=== PATIENT | female | born 1990 | race Caucasian/White ===

== ENCOUNTER 2017-05-10 21:52 | Emergency (ER) | payer OTHER ==
[2017-05-10 22:14] VITALS: O2SAT 98
[2017-05-10] MEDS ORDERED: BACIGUENT PACKET TP ONE (22:19)
[2017-05-10] MEDS ORDERED: BACIGUENT PACKET ONE ×2 (22:21→22:30)
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
[2017-05-10] MEDS ORDERED: Tylenol #3 Tablet PO ONE ×2 (22:27)
[2017-05-10] MEDS ORDERED: Tylenol #3 Tablet ONE (22:31)
[2017-05-10 22:49] VITALS: BP 111/71; PULSE 88
== END 2017-05-10 22:53 | disposition home or self-care (01) ==
LOC: ED 21:52
DX: T23.261A Burn of second degree of back of right hand, initial encounter (principal); W38.XXXA Explosion and rupture of other specified pressurized devices, initial encounter; Z33.1 Pregnant state, incidental
CPT/HCPCS: 99283; A9270-GY

== ENCOUNTER 2017-05-22 10:38 | Emergency (ER) | payer OTHER ==
--- NOTE | 2017-05-22 11:15 | ERPHSYRPT ---
- History of Present Illness Time Seen by Provider: 05/22/17 10:42 Source: patient Exam Limitations: no limitations Physician History: jillian presents 19+ weeks ; LMP December 30, 2016;KELECHI 2-16-18; no pain; no bleeding; good movement; had intercourse last pm wit problems;this am felt watery d/c when got up and concerned water had broken; no other issues or complaints; no symptoms Timing/Duration: today, hour(s) (3), sudden Activites at Onset: physical activity (walking) Quality: other (none) Onset Location: vaginal Pain Radiation: none Severity of Pain-Max: none Severity of Pain-Current: none Prior abdominal problems: none Sexual intercourse history: single partner, other (last night) Modifying Factors: Improves With: movement, walking Associated Symptoms: vaginal fluid leakage (possible and concerned) Allergies/Adverse Reactions: penicillin G Allergy (Severe, Verified 05/22/17 11:16) Shortness of Breath Home Medications: Vits W-Ca,Fe,FA(<1Mg) [] 1 each PO DAILY 05/22/17 [History] Hx Tetanus, Diphtheria Vaccination/Date Given: Yes (2 years ago) Hx Influenza Vaccination/Date Given: No Hx Pneumococcal Vaccination/Date Given: No - Review of Systems Constitutional: No Symptoms Eyes: No Symptoms Ears, Nose, & Throat: No Symptoms Respiratory: No Cough, No Dyspnea, No Wheezing Cardiac: No Chest Pain, No Edema, No Palpitations, No Syncope Abdominal/Gastrointestinal: No Abdominal Pain, No Nausea, No Vomiting, No Diarrhea Genitourinary Symptoms: , Vaginal Discharge (possible leakage amniotic fluid), No Dysuria, No Hematuria, No Flank Pain, No Vaginal Bleeding Musculoskeletal: No Symptoms Skin: No Symptoms Neurological: No Symptoms Psychological: No Symptoms Endocrine: No Symptoms Hematologic/Lymphatic: No Symptoms Immunological/Allergic: No Symptoms - Past Medical History Pertinent Past Medical History: No Neurological History: No Pertinent History ENT History: No Pertinent History Cardiac History: No Pertinent History Respiratory History: Asthma Endocrine Medical History: Hypoglycemia Musculoskeletal History: No Pertinent History GI Medical History: Gallbladder Disease History: No Pertinent History Psycho-Social History: Depression Female Reproductive Disorders: No Pertinent History Other Medical History: Hypoglycemic. - Past Surgical History Past Surgical History: Yes Neuro Surgical History: No Pertinent History Cardiac: No Pertinent History Respiratory: No Pertinent History Gastrointestinal: Cholecystectomy Genitourinary: No Pertinent History Musculoskeletal: No Pertinent History Female Surgical History: No Pertinent History Other Surgical History: tonsils - Social History Smoking Status: Former smoker How long have you smoked: 5 Exposure to second hand smoke: No Alcohol Use: None Drug Use: none Patient Lives Alone: Yes (fiance and children) Significant Family History: no pertinent family hx - Female History Hx Last Menstrual Period: dec 30 2016 Hx Now: Yes (19 + weeks) Expected Date of Delivery: 10/12/17 () Gestational Age: 19+ weeks - Nursing Vital Signs Nursing Vital Signs: Initial Vital Signs Pulse Rate 85 05/22/17 10:58 Respiratory Rate 18 05/22/17 10:58 Blood Pressure 140/84 05/22/17 10:58 O2 Sat by Pulse Oximetry 97 05/22/17 10:58 Pain Scale Pain Intensity 0 - Physical Exam General Appearance: no apparent distress, alert, other (19+ weeks ) Eye Exam: PERRL/EOMI, eyes nml inspection, No photophobia Ears, Nose, Throat Exam: normal ENT inspection, TMs normal, pharynx normal, moist mucous membranes Neck Exam: normal inspection, non-tender, supple, full range of motion, No meningismus, No JVD, No thyromegaly Respiratory Exam: normal breath sounds, lungs clear, airway intact, No chest tenderness, No respiratory distress, No rhonchi, No wheezing Cardiovascular Exam: regular rate/rhythm, normal heart sounds, normal peripheral pulses, capillary refill <2 sec, No murmur, No edema Gastrointestinal/Abdomen Exam: soft, normal bowel sounds, distention () , mass (19+ week ), organomegaly (uterus to umbilicus), other (Good FHT at 146), No tenderness, No guarding, No rebound, No hepatomegaly, No splenomegaly Pelvic Exam: normal external exam, vaginal discharge (clear), other (cervix closed; uterus enlarged to umbilicus consistant with dates), No adnexal tenderness, No adnexal mass, No cervical motion tenderness, No vaginal bleeding , No uterine tenderness Rectal Exam: deferred Back Exam: normal inspection, normal range of motion, No CVA tenderness, No rash Extremity Exam: normal inspection, normal range of motion, pelvis stable, No calf tenderness, No jhonathan's sign, No pedal edema, No swelling Neurologic Exam: alert, oriented x 3, cooperative, dental specialist II-XII nml as tested, normal mood/affect, nml cerebellar function, nml station & gait, sensation nml, other (reflexes wnl) Skin Exam: normal color, warm, dry, No rash, No petechiae Lymphatic Exam: No adenopathy - Course Nursing assessment & vital signs reviewed: Yes Ordered Tests: Active Orders 24 hr Category Date Time Status Cath for Specimen-Straight STAT Care 05/22/17 11:09 Active Heart Tones-ED STAT Care 05/22/17 11:19 Active Pelvic Exam Assist STAT Care 05/22/17 11:08 Active Re-Check Vital Signs STAT Care 05/22/17 11:08 Active CULTURE,URINE Stat Lab 05/22/17 11:15 Received UA W/ MICROSCOPIC Stat Lab 05/22/17 11:15 Completed Wet Prep Stat Lab 05/22/17 11:15 Completed Lab/Rad Data: Laboratory Results 05/22/17 Range/Units 11:15 Ur Collection Type CATH Urine Color YELLOW (YELLOW) Urine Appearance CLEAR (CLEAR) Urine pH 5.0 (5-6) Ur Specific [place] 1.015 (1.005-1.025) Urine Protein 300 (Negative) Urine Ketones NEGATIVE (NEGATIVE) Urine Blood 250 (0-5) Gil/ul Urine Nitrite NEGATIVE (NEGATIVE) Urine Bilirubin NEGATIVE (NEGATIVE) Urine Urobilinogen NORMAL (0-1) mg/dL Ur Leukocyte Esterase TRACE (NEGATIVE) Urine Microscopic RBC 10-15 (0-2) /HPF Urine Microscopic WBC 10-15 (0-5) /HPF Ur Epithelial Cells FEW (FEW) /HPF Urine Bacteria MODERATE (NEGATIVE) /HPF Urine Mucus SLIGHT (NEGATIVE) /HPF Urine Glucose NEGATIVE (NEGATIVE) mg/dL WBC (Wet Prep) Moderate RBC (Wet Prep) Few Epi Cells (Wet Prep) Few Bacteria (Wet Prep) Many Clue Cells (Wet Prep) Few Trichomonas (Wet Prep) None Seen Budding Yeast (Wet Prp) None Seen Specimen Received 05-22 0600 reviewed - Progress Progress: re-examined Air Movement: good Progress Note: 05/22/17 11:59 checked fluid with nitrazene paper and not amniotic fluid; u/a shows infection on cath specimen; wet prep ok; at bedside; instructions given; recheck no change Blood Culture(s) Obtained: No Antibiotics given: No Counseled pt/family regarding: lab results, diagnosis, need for follow-up - Departure Time of Disposition: 12:00 Departure Disposition: Home Clinical Impression: UTI (urinary tract infection), Condition: Stable Critical Care Time: No Referrals: HEBER BARBOZA MD [Primary Care Provider] - Instructions: -- Discomforts and Remedies, Urinary Tract Infection ( UTI) Additional Instructions: follow up OB doctor recheck Follow-up with family doctor as directed. Call for appointment. Return if any problems. If you smoke please stop. Call or follow up with your family doctor for assistance if you need it to stop. Please wear your seatbelt when driving. Have a nice day. Thank you for allowing us to participate in your care today. :o) Dr Art Jimenes Prescriptions: Cephalexin Mh 250 mg [Keflex 250 mg] 250 mg PO TID #30 capsule
[2017-05-22 11:16] VITALS: O2SAT 97
[2017-05-22 11:30] LABS: Bacteria Many; Clue Cells Few; Trichomonas None Seen
[2017-05-22 11:31] LABS: Bilirubin NEGATIVE (NEGATIVE); Blood 250 Ery/ul (0-5); COMPLETE URINE MICROSCOPIC? YES; Collection Type CATH; Glucose NEGATIVE (NEGATIVE); Leukocyte Esterase TRACE (NEGATIVE); Yeast None Seen
[2017-05-22 11:36] LABS: ADD URINE CULTURE? YES (NO); Bacteria MODERATE /HPF (NEGATIVE); Epithelial Cells FEW /HPF (FEW); Mucus SLIGHT /HPF (NEGATIVE)
[2017-05-22 12:06] VITALS: BP 120/72; PULSE 64
[2017-05-22 13:27] LABS: CHLAMYDIA URINE POSITIVE; GC URINE NEGATIVE
== END 2017-05-22 12:12 | disposition home or self-care (01) ==
LOC: ED 10:38
DX: O23.42 Unspecified infection of urinary tract in pregnancy, second trimester (principal); Z3A.19 19 weeks gestation of pregnancy
CPT/HCPCS: 81000; 87086; 87210; 87491; 87591; 99283; P9612

== ENCOUNTER 2017-06-19 07:22 | Inpatient (IN) | payer OTHER ==
[2017-06-19] MEDS ORDERED: PITOCIN 30 UNITS/ LR 500 ML 500 ML IV ONE (07:37)
[2017-06-19] MEDS ORDERED: Lactated Ringers 1,000 ML IV ONE (07:37)
[2017-06-19] MEDS ORDERED: TYLENOL EXTRA STRENGTH 500 MG PO PRN (07:39)
[2017-06-19] MEDS ORDERED: Dermoplast Spray TP PRN (07:39)
[2017-06-19] MEDS ORDERED: Ambien 10 MG PO PRN (07:39)
[2017-06-19] MEDS ORDERED: Mylicon 80MG PO PRN (07:39)
[2017-06-19] MEDS ORDERED: NORCO 5/325 MG PO PRN (07:39)
[2017-06-19] MEDS ORDERED: TUCKS TP PRN (07:39)
[2017-06-19] MEDS ORDERED: PITOCIN 30 UNITS/ LR 500 ML 500 ML IV SCH (08:00)
[2017-06-19 08:04] LABS: BASOPHIL % 0.1 % (0.0-0.4); Eosinophil % 0.9 % (0.00-5.0); Granulocytes % 78.7 % (36.0-66.0); Lymphocytes % 13.6 % (24.0-44.0); Mean Cell Volume 87.7 fl (78-100); Mean Corpuscular Hemoglobin 29.6 pg (26-32); Monocytes % 6.7 % (0.0-12.0); Platelet Count 257 K/mm3 (150-450); Red Blood Count 3.41 M/mm3 (4.1-5.4); Red Cell Distribution Width 12.8 % (11.5-14.0); White Blood Count 23.2 K/mm3 (4.0-10.5)
[2017-06-19 08:20] LABS: Eosinophil 1 % (0.00-3.0); Platelet Estimate NORMAL (NORMAL); Total Cells Counted 100
[2017-06-19] MEDS ORDERED: MOTRIN 400 MG ONE ×2 (08:22→15:34)
[2017-06-19] MEDS: MOTRIN 400 MG PO PRN ×2 (08:25→15:38)
[2017-06-19] MEDS ORDERED: Colace 100 MG PO SCH (10:00)
[2017-06-19] MEDS ORDERED: FERREX 150 PO SCH (10:00)
[2017-06-19 10:34] VITALS: O2SAT 99
[2017-06-19] MEDS: Lactated Ringers 1,000 ML IV SCH ×2 (10:55→17:55)
[2017-06-19 13:28] VITALS: BP 103/59
[2017-06-19] MEDS ORDERED: Colace 100 MG ONE (15:34)
[2017-06-19] MEDS ORDERED: FERREX 150 ONE (15:34)
[2017-06-19 18:33] LABS: BASOPHIL % 0.2 % (0.0-0.4); Eosinophil % 0.5 % (0.00-5.0); Granulocytes % 75.4 % (36.0-66.0); Lymphocytes % 16.7 % (24.0-44.0); Mean Cell Volume 88.2 fl (78-100); Mean Platelet Volume 9.7 fl (6-9.5); Monocytes % 7.2 % (0.0-12.0); Platelet Count 238 K/mm3 (150-450); Red Blood Count 3.05 M/mm3 (4.1-5.4); Red Cell Distribution Width 12.9 % (11.5-14.0); White Blood Count 18.3 K/mm3 (4.0-10.5)
[2017-06-19 18:39] LABS: Mean Corpuscular Hemoglobin 29.1 pg (26-32)
[2017-06-19 20:37] VITALS: PULSE 85
--- NOTE | 2017-06-20 11:12 | DS ---
DISCHARGE DIAGNOSIS: STILLBORN DELIVERY IN 23RD WEEK OF . HOSPITAL COURSE: The patient is a 26 year-old white female who has been taken care of by Dr. Laurence Fritz at the [facility] in [place]. She had been seen there and diagnosed with oligohydramnios with her baby and then she had been seen at [facility]. Apparently the mom reports that the baby had been active and moving up until the time that she began having bleeding and what she thought was ruptured membranes that had been leaking. She presented herself to our facility. By the time I saw her the baby had already delivered stillborn. We were able to deliver the placenta in its entirety without incident. The patient was monitored for the possibility of chorioamnionitis during her stay. She was afebrile with stable vital signs. She was noted to be O-positive on her blood type. Laboratory studies showed an initial white blood cell count at 22,200 with no bands and 80 polys this was at 0800 hours and by 1800 hours in the afternoon her white blood cell count was 18,300. Her PLT count was 238,000. Her hemoglobin was 8.9 down from 10.1. The patient's urine drug screen was entirely negative. She had a negative antibody screen. We did request data from [facility]. They did give us an ultrasound of 05/24/2017 showing oligohydramnios with BRYAN 1.6. At that time it showed gestational age of 20 weeks and 0 days with an EDC of 10/16/2017. The patient after delivery was doing quite well. She had two previous deliveries of healthy babies and she was in our labor and delivery unit with mommas delivering babies and she desired returning home as she did not wish to stay in our facility at this time. She was stable and there appeared to be no reason that she could not go home at this time. She was allowed to be discharged home with instructions to follow up with Dr. Fritz in the office as soon as possible. She was instructed in the signs and symptoms of chorioamnionitis with belly pain, fever, foul smelling lochia and was instructed to return if she had any problems immediately to call her primary care doctor. The patient verbalized her understanding and she was allowed to discharge home with the above instructions.
== END 2017-06-19 21:05 | disposition home or self-care (01) | DRG 775 ==
LOC: OB 07:22 → OBSVTOIN 07:22
PROVIDERS: ADMIT Family Medicine; ATTEND Family Medicine
DX: O36.4XX0 Maternal care for intrauterine death, not applicable or unspecified (principal); Z37.1 Single stillbirth; Z3A.22 22 weeks gestation of pregnancy
CPT/HCPCS: 36415; 80307; 85025; 86850; 86900; 86901; G0378; J2590; A9270-GY

== ENCOUNTER 2017-08-10 13:23 | Emergency (ER) | payer OTHER ==
--- NOTE | 2017-08-10 13:51 | ERPHSYRPT ---
- History of Present Illness Time Seen by Provider: 08/10/17 13:48 Source: patient Exam Limitations: no limitations Patient Subjective Stated Complaint: pt states for the past 3 days she has had a sorethroat and bodyaches with rigth ear pain. states she had a fever a few days ago. denies any fever in the past 48 hours. Triage Nursing Assessment: pt pink, warm, dry. pt afebrile at this time. pt ambulated into ER without difficulty. Physician History: The patient is a 26-year-old female complaining of a sore throat, right ear pain , body aches and mild cough for 3 days. She did not receive her influenza vaccination this year. She is a smoker. She had a fever days ago but no longer has one now. Her past medical history is significant for cholecystitis. Timing/Duration: gradual onset Severity: mild ENT Location: ear (R), throat Prearrival Treatment: no prearrival treatment Modifying Factors: Improves With: coughing Associated Symptoms: ear pain (R), cough, fever, sore throat Allergies/Adverse Reactions: penicillin G Allergy (Severe, Verified 08/10/17 13:44) Shortness of Breath Home Medications: Ibuprofen [Advil] 400 mg PO Q4-6HPRN PRN 08/10/17 [History] Hx Tetanus, Diphtheria Vaccination/Date Given: Yes (up to date) Hx Influenza Vaccination/Date Given: No Hx Pneumococcal Vaccination/Date Given: No Immunizations Up to Date: Yes - Review of Systems Constitutional: Fever Eyes: No Symptoms Ears, Nose, & Throat: Ear Pain, Throat Pain Respiratory: Cough Cardiac: No Chest Pain, No Edema, No Syncope Abdominal/Gastrointestinal: No Abdominal Pain, No Nausea, No Vomiting, No Diarrhea Genitourinary Symptoms: No Dysuria Musculoskeletal: No Back Pain, No Neck Pain Skin: No Rash Neurological: No Dizziness, No Focal Weakness, No Sensory Changes Psychological: No Symptoms Endocrine: No Symptoms Hematologic/Lymphatic: No Symptoms Immunological/Allergic: No Symptoms All Other Systems: Reviewed and Negative - Past Medical History Pertinent Past Medical History: Yes Neurological History: No Pertinent History ENT History: No Pertinent History Cardiac History: No Pertinent History Respiratory History: Asthma Endocrine Medical History: Hypoglycemia Musculoskeletal History: No Pertinent History GI Medical History: Gallbladder Disease History: No Pertinent History Psycho-Social History: Depression Female Reproductive Disorders: No Pertinent History Other Medical History: Hypoglycemic. - Past Surgical History Past Surgical History: Yes Neuro Surgical History: No Pertinent History Cardiac: No Pertinent History Respiratory: No Pertinent History Gastrointestinal: Cholecystectomy Genitourinary: No Pertinent History Musculoskeletal: No Pertinent History Female Surgical History: No Pertinent History Other Surgical History: tonsils - Social History Smoking Status: Current every day smoker How long have you smoked: 5 Exposure to second hand smoke: Yes Alcohol Use: None Drug Use: none Patient Lives Alone: No Significant Family History: no pertinent family hx - Female History Hx Last Menstrual Period: Jul 20 2017 Hx Now: No - Nursing Vital Signs Nursing Vital Signs: Initial Vital Signs Temperature 97.8 F 08/10/17 13:39 Pulse Rate 93 H 08/10/17 13:39 Respiratory Rate 18 08/10/17 13:39 Blood Pressure 119/81 08/10/17 13:39 O2 Sat by Pulse Oximetry 98 08/10/17 13:39 Pain Scale Pain Intensity 0 - Physical Exam General Appearance: no apparent distress, alert Eye Exam: bilateral eye: PERRL, EOMI Ear Exam: bilateral ear: auricle normal, TM normal Nasal Exam: normal inspection Throat Exam: pharynx normal, moist mucus membranes, tongue swollen (tonsilectomy ), No tonsillar exudate Neck Exam: supple Cardiovascular/Respiratory Exam: normal breath sounds, regular rate/rhythm Abdominal Exam: non-tender, soft Neurologic Exam: alert, oriented x 3, sensation nml, No motor deficits Skin Exam: normal color, warm, dry SpO2 Interpretation: normal SpO2: 98 Oxygen Delivery: Room Air Ordered Tests: Active Orders 24 hr Category Date Time Status CULTURE, THROAT Stat Lab 08/10/17 14:02 Received STREP SCREEN-BETA A Stat Lab 08/10/17 14:02 Completed Medication Summary Discontinued Medications Generic Name Dose Route Start Last Admin Trade Name Freq PRN Reason Stop Dose Admin Acetaminophen 650 mg 08/10/17 14:00 08/10/17 14:14 Tylenol 325 Mg PO 08/10/17 14:01 650 mg STAT STA Administration Acetaminophen Confirm 08/10/17 14:13 Tylenol 325 Mg Administered 08/10/17 14:14 Dose 650 mg .ROUTE .STK-MED ONE Ketorolac Tromethamine 60 mg 08/10/17 13:56 08/10/17 14:11 Toradol 30 Mg Injection IM 08/10/17 13:57 Not Given STAT ONE Lab/Rad Data: Laboratory Results 08/10/17 08/10/17 Range/Units 14:02 14:02 Influenza Type A Ag NEGATIVE (NEGATIVE) Influenza Type B Ag NEGATIVE (NEGATIVE) RSV (PCR) NEGATIVE (Negative) Streptococcus Screen NEGATIVE (Negative) - Progress Progress: improved Counseled pt/family regarding: lab results, diagnosis - Departure Time of Disposition: 15:12 Departure Disposition: Home Clinical Impression: Pharyngitis Condition: Stable Critical Care Time: No Referrals: HEBER BARBOZA MD [Primary Care Provider] - Additional Instructions: You have pharyngitis. The test for influenza A infection was negative. The test for strep throat was negative. You were given Tylenol 650 mg orally in the ER. Continue to take Tylenol as needed. Use warm salt water gargles as often as needed. You're given a work excuse for today. Follow-up as needed.
[2017-08-10] MEDS ORDERED: TORAdol 30 mg Injection IM ONE (13:56)
[2017-08-10] MEDS ORDERED: TYLENOL 325 MG PO STA (14:00)
[2017-08-10] MEDS ORDERED: TYLENOL 325 MG ONE (14:13)
[2017-08-10 15:08] VITALS: BP 99/58; PULSE 61
[2017-08-10 15:14] VITALS: O2SAT 98
== END 2017-08-10 15:24 | disposition home or self-care (01) ==
LOC: ED 13:23
DX: J02.9 Acute pharyngitis, unspecified (principal)
CPT/HCPCS: 87070; 87430; 87631; 99282; A9270-GY

== ENCOUNTER 2018-12-27 18:49 | Emergency (ER) | payer MEDICAID, OTHER ==
--- NOTE | 2018-12-27 20:02 | ERPHSYRPT ---
- History of Present Illness Time Seen by Provider: 12/27/18 19:25 Source: patient Exam Limitations: no limitations Patient Subjective Stated Complaint: pt states she has been having headaches for 1 week and tooth pain since middle of october. was supposed to have her wisdom teeth removed in november but cancelled the appt d/t work. states she had a tooth on the rt upper side break off today which increased pain Triage Nursing Assessment: pt alert and oriented, answers questions approp. pt ambulatory with steady gait noted. respirations nonlabored with lungs cta. pupils equal and reactive. bilat upper and lower ext strength wnl. Physician History: 28 y/o white female presents with toothache since october, worse today after right upper molar fx, and associated headache intermittently for a week. pt is allergic to pcn but can take keflex. pt was informed she was taking too much tylenol and ibuprofen per dose. Timing/Duration: gradual onset Severity: moderate ENT Location: dental Prearrival Treatment: over the counter meds Associated Symptoms: headache, jaw pain, tooth pain Allergies/Adverse Reactions: penicillin G Allergy (Severe, Verified 12/27/18 19:20) Shortness of Breath Hx Tetanus, Diphtheria Vaccination/Date Given: Yes (up to date) Hx Influenza Vaccination/Date Given: No Hx Pneumococcal Vaccination/Date Given: No Immunizations Up to Date: Yes - Review of Systems Constitutional: No Symptoms Eyes: No Symptoms Ears, Nose, & Throat: Other (dental pain) Respiratory: No Symptoms Cardiac: No Symptoms Abdominal/Gastrointestinal: No Symptoms Genitourinary Symptoms: No Symptoms Musculoskeletal: No Symptoms Skin: No Symptoms Neurological: No Symptoms Psychological: No Symptoms Endocrine: No Symptoms Hematologic/Lymphatic: No Symptoms Immunological/Allergic: No Symptoms All Other Systems: Reviewed and Negative - Past Medical History Pertinent Past Medical History: Yes Neurological History: No Pertinent History ENT History: No Pertinent History Cardiac History: No Pertinent History Respiratory History: Asthma Endocrine Medical History: Hypoglycemia Musculoskeletal History: No Pertinent History GI Medical History: Gallbladder Disease History: No Pertinent History Psycho-Social History: Depression Female Reproductive Disorders: No Pertinent History Other Medical History: Hypoglycemic. - Past Surgical History Past Surgical History: Yes Neuro Surgical History: No Pertinent History Cardiac: No Pertinent History Respiratory: No Pertinent History Gastrointestinal: Cholecystectomy Genitourinary: No Pertinent History Musculoskeletal: No Pertinent History Female Surgical History: No Pertinent History Other Surgical History: tonsils - Social History Smoking Status: Current every day smoker How long have you smoked: 5 Exposure to second hand smoke: Yes Alcohol Use: None Drug Use: none Patient Lives Alone: No Significant Family History: no pertinent family hx - Female History Hx Last Menstrual Period: last month Hx Now: No - Nursing Vital Signs Nursing Vital Signs: Initial Vital Signs Temperature 98.8 F 12/27/18 19:10 Pulse Rate 98 H 12/27/18 19:10 Respiratory Rate 16 12/27/18 19:10 Blood Pressure 124/81 12/27/18 19:10 O2 Sat by Pulse Oximetry 99 12/27/18 19:10 Pain Scale Pain Intensity 8 - Physical Exam General Appearance: mild distress, alert, anxiety Eye Exam: bilateral eye: normal inspection, PERRL, EOMI Ear Exam: bilateral ear: auricle normal, canal normal, TM normal Nasal Exam: normal inspection Throat Exam: normal, pharynx normal, dental tenderness (right upper back molar fx. ), moist mucus membranes, No excessive drooling, No foreign body Neck Exam: normal inspection, non-tender, supple, full range of motion, trachea midline Cardiovascular/Respiratory Exam: chest non-tender Abdominal Exam: non-tender Neurologic Exam: alert, oriented x 3, cooperative, foster care social worker II-XII nml as tested Skin Exam: normal color, warm SpO2 Interpretation: normal SpO2: 99 O2 Delivery: Room Air - Course Nursing assessment & vital signs reviewed: Yes - Progress Progress: unchanged Counseled pt/family regarding: diagnosis, need for follow-up - Departure Departure Disposition: Home Clinical Impression: Pain, dental Condition: Stable Critical Care Time: No Referrals: ALEKSANDR MOODY [Primary Care Provider] - Additional Instructions: No more than 4 grams of tylenol per day and 1000mg per dose. no more than 600mg ibuprofen with food per dose and 2400mg per day. follow up with a dentist for further management Prescriptions: Hydrocodone/APAP 5/325 [[place] [place] 5/325 mg] 1 each PO Q12H PRN PRN #6 tablet MDD 2 PRN Reason: Pain Cephalexin Mh 500 mg [Keflex 500 mg] 500 mg PO TID #21 capsule
[2018-12-27] MEDS ORDERED: KEFLEX 500 MG PO ONE (20:06)
[2018-12-27] MEDS ORDERED: KEFLEX 500 MG ONE (20:11)
[2018-12-27 20:26] VITALS: BP 120/77; PULSE 80; O2SAT 97
== END 2018-12-27 20:26 | disposition home or self-care (01) ==
LOC: ED 18:49
DX: K08.89 Other specified disorders of teeth and supporting structures (principal)
CPT/HCPCS: 99283; A9270-GY

== ENCOUNTER 2019-08-01 08:21 | Emergency (ER) | payer MEDICAID ==
--- NOTE | 2019-08-01 08:35 | ERPHSYRPT ---
- History of Present Illness Hx Tetanus, Diphtheria Vaccination/Date Given: Yes (up to date) Hx Influenza Vaccination/Date Given: No Hx Pneumococcal Vaccination/Date Given: No <LAY LANG - Last Filed: 08/01/19 08:35> - History of Present Illness Source: patient Exam Limitations: no limitations Timing/Duration: week(s) (2) Activites at Onset: none Quality: burning, pressure Onset Location: suprapubic Pain Radiation: suprapubic Severity of Pain-Max: mild Severity of Pain-Current: mild Modifying Factors: Improves With: nothing Associated Symptoms: abdominal pain, dysuria, urinary frequency, No fever, No chills, No nausea, No vomiting <CARROLL MCKOY - Last Filed: 08/01/19 10:21> - History of Present Illness Time Seen by Provider: 08/01/19 08:35 Physician History: 28 y/o white female presents with 2 weeks h/o intermittent dysuria, frequency and suprapubic pressure. sx more constant, despite, otc azo tablets. pt has had a btl. denies cp, denies, soa, denies n/v/d. pt has had keflex in past without issues (CARROLL MCKOY) Allergies/Adverse Reactions: penicillin G Allergy (Severe, Verified 08/01/19 08:39) Shortness of Breath - Review of Systems Constitutional: No Symptoms Eyes: No Symptoms Ears, Nose, & Throat: No Symptoms Respiratory: No Symptoms Cardiac: No Symptoms Abdominal/Gastrointestinal: Abdominal Pain (mild suprapubic pressure) Genitourinary Symptoms: Dysuria, Frequency, Urgency Musculoskeletal: No Symptoms Skin: No Symptoms Neurological: No Symptoms Psychological: No Symptoms Endocrine: No Symptoms Hematologic/Lymphatic: No Symptoms Immunological/Allergic: No Symptoms All Other Systems: Reviewed and Negative <CARROLL MCKOY - Last Filed: 08/01/19 10:21> - Past Medical History Pertinent Past Medical History: Yes Neurological History: No Pertinent History ENT History: No Pertinent History Cardiac History: No Pertinent History Respiratory History: Asthma Endocrine Medical History: Hypoglycemia Musculoskeletal History: No Pertinent History GI Medical History: Gallbladder Disease History: No Pertinent History Psycho-Social History: Depression Female Reproductive Disorders: No Pertinent History Other Medical History: Hypoglycemic. - Past Surgical History Past Surgical History: Yes Neuro Surgical History: No Pertinent History Cardiac: No Pertinent History Respiratory: No Pertinent History Gastrointestinal: Cholecystectomy Genitourinary: No Pertinent History Musculoskeletal: No Pertinent History Female Surgical History: No Pertinent History Other Surgical History: tonsils - Social History Smoking Status: Current every day smoker How long have you smoked: 5 Exposure to second hand smoke: Yes Alcohol Use: None Drug Use: none Patient Lives Alone: No Significant Family History: no pertinent family hx <LAY LANG - Last Filed: 08/01/19 08:35> - Physical Exam General Appearance: no apparent distress, alert, anxiety Eye Exam: PERRL/EOMI, eyes nml inspection Ears, Nose, Throat Exam: normal ENT inspection, moist mucous membranes Neck Exam: normal inspection, non-tender, supple, full range of motion Respiratory Exam: airway intact, No chest tenderness, No respiratory distress Gastrointestinal/Abdomen Exam: tenderness (mild suprapubic pressure), pulsatile mass, No guarding, No rebound Pelvic Exam: not done Rectal Exam: not done Back Exam: normal inspection, normal range of motion, No CVA tenderness, No vertebral tenderness Extremity Exam: normal inspection, normal range of motion, pelvis stable Neurologic Exam: alert, oriented x 3, cooperative, cargo service supervisor II-XII nml as tested Skin Exam: normal color, warm, dry Lymphatic Exam: No adenopathy SpO2 Interpretation: normal O2 Delivery: Room Air <CARROLL MCKOY - Last Filed: 08/01/19 10:21> - Nursing Vital Signs Nursing Vital Signs: Initial Vital Signs Temperature 98.8 F 08/01/19 08:33 Pulse Rate 100 H 08/01/19 08:33 Respiratory Rate 16 08/01/19 08:33 Blood Pressure 122/84 08/01/19 08:33 O2 Sat by Pulse Oximetry 97 08/01/19 08:33 Pain Scale Pain Intensity 4 - Course Nursing assessment & vital signs reviewed: Yes <CARROLL MCKOY - Last Filed: 08/01/19 10:21> Ordered Tests: Active Orders 24 hr Category Date Time Status CULTURE,URINE Stat Lab 08/01/19 09:30 Received HCG,QUALITATIVE URINE Stat Lab 08/01/19 09:30 Completed UA W/RFX UR CULTURE Stat Lab 08/01/19 09:30 Completed Lab/Rad Data: Laboratory Results 08/01/19 08/01/19 Range/Units 09:30 09:30 Urine Color SANKET (YELLOW) Urine Appearance CLOUDY (CLEAR) Urine pH 5.0 (5-6) Ur Specific [place] 1.018 (1.005-1.025) Urine Protein 100 (Negative) Urine Ketones NEGATIVE (NEGATIVE) Urine Blood MODERATE (0-5) Gil/ul Urine Nitrite POSITIVE (NEGATIVE) Urine Bilirubin NEGATIVE (NEGATIVE) Urine Urobilinogen 4 (0-1) mg/dL Ur Leukocyte Esterase MODERATE (NEGATIVE) Urine WBC (Auto) >100 (0-5) /HPF Urine RBC (Auto) 26-50 (0-2) /HPF U Epithel Cells (Auto) MODERATE (FEW) /HPF Urine Bacteria (Auto) MODERATE (NEGATIVE) /HPF Unidentified Crystals 5-10 (NEGATIVE) /HPF Urine Mucus (Auto) MANY (NEGATIVE) /HPF Urine Yeast (Budding) Occasional (NEGATIVE) /HPF Urine Culture Reflexed YES (NO) Urine Glucose NEGATIVE (NEGATIVE) mg/dL Urine HCG, Qual NEGATIVE (Negative) - Progress Progress: unchanged Air Movement: good Blood Culture(s) Obtained: No Counseled pt/family regarding: lab results, diagnosis, need for follow-up <CARROLL MCKOY - Last Filed: 08/01/19 10:21> <LAY LANG - Last Filed: 08/01/19 08:35> - Departure Departure Disposition: Home Critical Care Time: No <CARROLL MCKOY - Last Filed: 08/01/19 10:21> - Departure Clinical Impression: UTI (urinary tract infection) Condition: Stable Referrals: ALEKSANDR MOODY [Primary Care Provider] - Additional Instructions: drink plenty of fluids. use tylenol and ibuprofen for pain and fever. follow up with primary doctor for further management Prescriptions: Phenazopyridine HCl 200 mg [Pyridium 200 mg] 200 mg PO TID #6 tablet Smz/Tmp Ds Tablet [Bactrim Ds Tablet] 1 udtab PO BID #20 tablet
[2019-08-01 09:44] LABS: Appearance CLOUDY (CLEAR); Bilirubin NEGATIVE (NEGATIVE); Blood MODERATE Ery/ul (0-5); Epithelial Cells MODERATE /HPF (FEW); Glucose NEGATIVE (NEGATIVE); Ketones NEGATIVE (NEGATIVE); Leukocyte Esterase MODERATE (NEGATIVE); Mucus MANY /HPF (NEGATIVE); Nitrite POSITIVE (NEGATIVE); Protein,Urine Dip 100 (Negative); RBC 26-50 /HPF (0-2); Specific Gravity 1.018 (1.005-1.025); Urobilinogen 4 mg/dL (0-1); WBC >100 /HPF (0-5)
[2019-08-01 09:45] LABS: Bacteria MODERATE /HPF (NEGATIVE); Budding Yeast Occasional /HPF (NEGATIVE)
[2019-08-01] MEDS ORDERED: BACTRIM DS TABLET PO ONE ×2 (10:18→10:23)
[2019-08-01] MEDS ORDERED: Rocephin 1000 MG INJ IM ONE (10:18)
[2019-08-01] MEDS ORDERED: Rocephin 1000 MG INJ ONE (10:23)
[2019-08-01 10:29] VITALS: BP 110/79; PULSE 70; O2SAT 97
== END 2019-08-01 10:31 | disposition home or self-care (01) ==
LOC: ED 08:21
DX: N39.0 Urinary tract infection, site not specified (principal); R10.9 Unspecified abdominal pain; R30.0 Dysuria; R39.15 Urgency of urination; R35.0 Frequency of micturition; E16.1 Other hypoglycemia
CPT/HCPCS: 81001; 84703; 87077; 87086; 87186; 96372; 99284; J0696; A9270-GY

== ENCOUNTER 2019-08-11 21:42 | Emergency (ER) | payer MEDICAID ==
--- NOTE | 2019-08-11 21:50 | ERPHSYRPT ---
- History of Present Illness Time Seen by Provider: 08/11/19 21:50 Source: patient Exam Limitations: no limitations Physician History: 28 y/o white female presents with left earache and cough for several days. pain worsening. denies abd pain. denies fever. no n/v/d Timing/Duration: days (4) Severity: mild ENT Location: ear (L) Prearrival Treatment: no prearrival treatment Modifying Factors: Improves With: coughing Associated Symptoms: ear pain (L), cough, sore throat, No fever, No chills Allergies/Adverse Reactions: penicillin G Allergy (Severe, Verified 08/11/19 22:00) Shortness of Breath Hx Tetanus, Diphtheria Vaccination/Date Given: Yes (up to date) Hx Influenza Vaccination/Date Given: No Hx Pneumococcal Vaccination/Date Given: No - Review of Systems Constitutional: No Symptoms Eyes: No Symptoms Ears, Nose, & Throat: Ear Pain (left) Respiratory: Cough (mild and improving) Cardiac: No Symptoms Abdominal/Gastrointestinal: No Symptoms Genitourinary Symptoms: No Symptoms Musculoskeletal: No Symptoms Skin: No Symptoms Neurological: No Symptoms Psychological: No Symptoms Endocrine: No Symptoms Hematologic/Lymphatic: No Symptoms Immunological/Allergic: No Symptoms All Other Systems: Reviewed and Negative - Past Medical History Pertinent Past Medical History: Yes Neurological History: No Pertinent History ENT History: No Pertinent History Cardiac History: No Pertinent History Respiratory History: Asthma Endocrine Medical History: Hypoglycemia Musculoskeletal History: No Pertinent History GI Medical History: Gallbladder Disease History: No Pertinent History Psycho-Social History: Depression Female Reproductive Disorders: No Pertinent History Other Medical History: Hypoglycemic. - Past Surgical History Past Surgical History: Yes Neuro Surgical History: No Pertinent History Cardiac: No Pertinent History Respiratory: No Pertinent History Gastrointestinal: Cholecystectomy Genitourinary: No Pertinent History Musculoskeletal: No Pertinent History Female Surgical History: No Pertinent History Other Surgical History: tonsils - Social History Smoking Status: Current every day smoker How long have you smoked: 5 Exposure to second hand smoke: Yes Alcohol Use: None Drug Use: none Patient Lives Alone: No Significant Family History: no pertinent family hx - Nursing Vital Signs Nursing Vital Signs: Initial Vital Signs Temperature 97.7 F 08/11/19 21:48 Pulse Rate 104 H 08/11/19 21:48 Respiratory Rate 16 08/11/19 21:48 Blood Pressure 127/82 08/11/19 21:48 O2 Sat by Pulse Oximetry 97 08/11/19 21:48 Pain Scale Pain Intensity 8 - Physical Exam General Appearance: no apparent distress, alert, anxiety Eye Exam: bilateral eye: normal inspection, PERRL, EOMI Ear Exam: right ear: canal normal, TM normal, left ear: TM red, other (canal pain/redness), bilateral ear: auricle normal Nasal Exam: normal inspection Throat Exam: normal, pharynx normal, No uvula swelling Neck Exam: normal inspection, non-tender, supple, full range of motion Cardiovascular/Respiratory Exam: chest non-tender Abdominal Exam: non-tender Neurologic Exam: alert, oriented x 3, cooperative, retail service technician II-XII nml as tested Skin Exam: normal color, warm SpO2 Interpretation: normal O2 Delivery: Room Air - Course Nursing assessment & vital signs reviewed: Yes Ordered Tests: Medication Summary Generic Name Dose Route Start Last Admin Trade Name Freq PRN Reason Stop Dose Admin Azithromycin 500 mg 08/11/19 22:12 Zithromax 250 Mg Tablet PO 08/11/19 22:13 STAT ONE Prednisone 20 mg 08/12/19 22:13 Deltasone 20 Mg PO 08/12/19 22:14 STAT ONE - Progress Progress: unchanged, pain not gone completely, re-examined Counseled pt/family regarding: diagnosis, need for follow-up - Departure Departure Disposition: Home Clinical Impression: Left otitis media Condition: Stable Critical Care Time: No Referrals: ALEKSANDR MOODY [Primary Care Provider] - Additional Instructions: drink plenty of fluids. follow up with primary doctor for further managment Prescriptions: Azithromycin 250 mg [Zithromax 250 MG TABLET] 250 mg PO ZPACK #6 tablet Hydrocodone Bit/Acetaminophen [Hydrocodone-Acetaminophen Soln] 10 ml PO Q6H # 120 ml Prednisone 10 mg [Deltasone 10 mg] 10 mg PO TID #12 tablet
[2019-08-11] MEDS ORDERED: Zithromax 250 MG TABLET PO ONE (22:12)
[2019-08-11] MEDS ORDERED: Zithromax 250 MG TABLET ONE (22:16)
[2019-08-11] MEDS ORDERED: DELTASONE 20 MG ONE (22:16)
[2019-08-11 22:57] VITALS: BP 102/68; PULSE 87; O2SAT 97
[2019-08-12] MEDS ORDERED: DELTASONE 20 MG PO ONE (22:13)
== END 2019-08-11 22:55 | disposition home or self-care (01) ==
LOC: ED 21:42
DX: H66.92 Otitis media, unspecified, left ear (principal); R05 Cough
CPT/HCPCS: 99283; A9270-GY

== ENCOUNTER 2019-10-06 02:21 | Emergency (ER) | payer SELFPAY ==
[2019-10-06 03:05] VITALS: PULSE 94; O2SAT 100
[2019-10-06] MEDS ORDERED: ZOFRAN ODT 4 MG PO ONE (03:24)
[2019-10-06] MEDS ORDERED: ZOFRAN ODT 4 MG ONE (03:38)
--- NOTE | 2019-10-06 03:58 | ERPHSYRPT ---
- History of Present Illness Time Seen by Provider: 10/06/19 02:53 Source: patient Exam Limitations: no limitations Patient Subjective Stated Complaint: vomiting Triage Nursing Assessment: pt to ED c/o NV onset noon today and upper bilat abd pain that started this am. does not report fevers at home. states daughter was sick in ED Sunday for same symptoms, was tx with antinausea meds and has felt better since. states she thinks she caught it from her daughter. rates 5/10 abd pain that starts just before episode emesis. pt A&Ox3, amublatory to room, hooked up to vitals monitor. lung sounds clear and equal bilat, heart sounds clear, active bowel sounds in all 4 quads, cap refil <3 sec. Physician History: 29 yearsold female presents to the ER with chief complaint of sudden onset nausea vomiting yesterday afternoon with multiple episodes of nonprojectile, nonbilious vomiting but no hematemesis. It is associated with upper abdominal cramping intermittently which get better off or vomiting. Denies any diarrhea or constipation. No abdominal pain at present. No fever or chills reported. Patient has been trying to keep herself hydrated put his not able to hold much down. Just prior to arrival she was able to hold Gatorade down. She reports the daughter having similar symptoms day before yesterday. Timing/Duration: hour(s) (12), sudden, worse Severity: moderate Modifying Factors: Improves With: nothing Associated Symptoms: nausea, vomiting, abdominal pain, loss of appetite Allergies/Adverse Reactions: penicillin G Allergy (Severe, Verified 10/06/19 03:05) Shortness of Breath Hx Tetanus, Diphtheria Vaccination/Date Given: Yes (up to date) Hx Influenza Vaccination/Date Given: No Hx Pneumococcal Vaccination/Date Given: No Immunizations Up to Date: No - Review of Systems Constitutional: No Symptoms, Fatigue Eyes: No Symptoms Ears, Nose, & Throat: No Symptoms Respiratory: No Symptoms Cardiac: No Symptoms Abdominal/Gastrointestinal: Abdominal Pain, Nausea, Vomiting, No Diarrhea, No Hematemesis Genitourinary Symptoms: No Symptoms Musculoskeletal: No Symptoms Skin: No Symptoms Neurological: No Symptoms Psychological: No Symptoms Endocrine: No Symptoms Hematologic/Lymphatic: No Symptoms Immunological/Allergic: No Symptoms - Past Medical History Pertinent Past Medical History: Yes Neurological History: No Pertinent History ENT History: No Pertinent History Cardiac History: No Pertinent History Respiratory History: Asthma Endocrine Medical History: Hypoglycemia Musculoskeletal History: No Pertinent History GI Medical History: Gallbladder Disease History: No Pertinent History Psycho-Social History: Anxiety, Depression Female Reproductive Disorders: No Pertinent History Other Medical History: Hypoglycemic. - Past Surgical History Past Surgical History: Yes Neuro Surgical History: No Pertinent History Cardiac: No Pertinent History Respiratory: No Pertinent History Gastrointestinal: Cholecystectomy Genitourinary: No Pertinent History Musculoskeletal: No Pertinent History Female Surgical History: Tubal Ligation Other Surgical History: tubal Mar 2018 - Social History Smoking Status: Current every day smoker How long have you smoked: 5 Exposure to second hand smoke: Yes Alcohol Use: None Drug Use: none Patient Lives Alone: No Significant Family History: no pertinent family hx - Female History Hx Last Menstrual Period: last month Hx Now: No (tubal) - Nursing Vital Signs Nursing Vital Signs: Initial Vital Signs Temperature 97.9 F 10/06/19 02:53 Pulse Rate 94 H 10/06/19 02:53 Respiratory Rate 17 10/06/19 02:53 Blood Pressure 123/83 10/06/19 02:53 O2 Sat by Pulse Oximetry 100 10/06/19 02:53 Pain Scale Pain Intensity 5 - Physical Exam General Appearance: no apparent distress Eye Exam: PERRL/EOMI Ears, Nose, Throat Exam: normal ENT inspection Neck Exam: normal inspection, non-tender, supple, full range of motion Respiratory Exam: normal breath sounds, lungs clear Cardiovascular Exam: regular rate/rhythm, normal heart sounds Gastrointestinal/Abdomen Exam: soft, normal bowel sounds, No tenderness, No distention, No mass, No guarding Extremity Exam: normal inspection Neurologic Exam: alert, oriented x 3, cooperative Skin Exam: normal color SpO2 Interpretation: normal SpO2: 100 O2 Delivery: Room Air - Course Nursing assessment & vital signs reviewed: Yes Ordered Tests: Medication Summary Discontinued Medications Generic Name Dose Route Start Last Admin Trade Name Freq PRN Reason Stop Dose Admin Ondansetron HCl 8 mg 10/06/19 03:24 10/06/19 03:39 Zofran Odt 4 Mg PO 10/06/19 03:25 8 mg STAT ONE Administration Ondansetron HCl Confirm 10/06/19 03:38 Zofran Odt 4 Mg Administered 10/06/19 03:39 Dose 8 mg .ROUTE .STK-MED ONE - Progress Progress: improved, pain not gone completely, re-examined Progress Note: she is offered IV fluid and workup but patient does not want any workup done. Patient states "I'm afraid of needles and does not want anything to be done I want Zofran". She is given Zofran ODT and observed here with good oral intake of her words and no vomiting. I believe she has a viral etiology, recommended supportive care and given Zofran to go home. Abdominal exam is soft nontender with no peritoneal signs at all. Nontoxic appearance. She is stable for discharge. 10/06/19 03:57 Counseled pt/family regarding: diagnosis, need for follow-up - Departure Departure Disposition: Home Clinical Impression: Nausea & vomiting Qualifiers: Vomiting type: unspecified Vomiting Intractability: non-intractable Qualified Code(s): R11.2 - Nausea with vomiting, unspecified Condition: Stable Critical Care Time: No Referrals: ALEKSANDR MOODY [Primary Care Provider] - Instructions: Nausea -- Adult, Vomiting -- Adult Additional Instructions: drink plenty of fluids. Take Tylenol as needed. Followup with primary care for reevaluation. Zofran as needed. Return to ER for any worsening. Prescriptions: Ondansetron ODT 4 MG [Zofran Odt 4 mg] 4 mg PO Q6H PRN PRN #8 tab.rapdis PRN Reason: Vomiting
[2019-10-06 04:11] VITALS: BP 107/58
== END 2019-10-06 04:11 | disposition home or self-care (01) ==
LOC: ED 02:21
DX: R11.2 Nausea with vomiting, unspecified (principal); R10.12 Left upper quadrant pain; R10.11 Right upper quadrant pain
CPT/HCPCS: 99283; Q0162

== ENCOUNTER 2020-04-03 11:25 | Emergency (ER) | payer OTHER ==
[2020-04-03] MEDS ORDERED: Zofran 4 MG/2 ML VIAL IV ONE (12:44)
[2020-04-03] MEDS ORDERED: Sodium Chloride 0.9% 1000 ML 1,000 ML IV STA (12:44)
--- NOTE | 2020-04-03 12:57 | ERPHSYRPT ---
- History of Present Illness Time Seen by Provider: 04/03/20 12:55 Historian: patient Exam Limitations: no limitations Patient Subjective Stated Complaint: vomiting Triage Nursing Assessment: pt to ED c/o abd pain and vomiting x 1 day. states co worker was COVID + last week and has been in quarentine since sx started. 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 pt works at [employer]. no cough or SOB. no fevers at home and afebrile on arrival. rates 7/10 pain currently and 10/10 at worse after eating. Physician History: 89-year-old female came to the emergency room with complaining of abdominal pain nausea and vomiting which started last night she denies any fever chills. Patient has a positive COVID at work and so she has been on quarantine. Her last. Was 4 weeks ago. She had tubal ligation. Timing/Duration: yesterday Abdominal Pain Onset Location: epigastric Pain Radiation: no radiation Severity of Pain-Max: moderate Severity of Pain-Current: mild Modifying Factors: Improves With: nothing Associated Symptoms: loss of appetite, nausea, vomiting, No fever/chills, No headache Previous symptoms: no prior history Allergies/Adverse Reactions: penicillin G Allergy (Severe, Verified 04/03/20 11:55) Shortness of Breath Hx Tetanus, Diphtheria Vaccination/Date Given: Yes (up to date) Hx Influenza Vaccination/Date Given: No Hx Pneumococcal Vaccination/Date Given: No Travel Risk - International Travel Have you traveled outside of the country in past 3 weeks: No - Coronavirus Screening Are you exhibiting any of the following symptoms?: Yes Symptoms: Vomiting/Diarrhea, Headaches/Body Aches/Fatigue Close contact with a COVID-19 positive Pt in past 14-21 Days: Yes - Review of Systems Constitutional: No Fever, No Chills Eyes: No Symptoms Ears, Nose, & Throat: No Symptoms Respiratory: No Cough, No Dyspnea Cardiac: No Chest Pain, No Edema, No Syncope Abdominal/Gastrointestinal: Nausea, Vomiting, No Abdominal Pain, No Diarrhea Genitourinary Symptoms: No Dysuria Musculoskeletal: No Back Pain, No Neck Pain Skin: No Rash Neurological: No Dizziness, No Focal Weakness, No Sensory Changes Psychological: No Symptoms Endocrine: No Symptoms All Other Systems: Reviewed and Negative - Past Medical History Pertinent Past Medical History: Yes Neurological History: No Pertinent History ENT History: No Pertinent History Cardiac History: No Pertinent History Respiratory History: Asthma Endocrine Medical History: Hypoglycemia Musculoskeletal History: No Pertinent History GI Medical History: Gallbladder Disease History: No Pertinent History Psycho-Social History: Anxiety, Depression Female Reproductive Disorders: No Pertinent History Other Medical History: sulfa burps - Past Surgical History Past Surgical History: Yes Neuro Surgical History: No Pertinent History Cardiac: No Pertinent History Respiratory: No Pertinent History Gastrointestinal: Cholecystectomy Genitourinary: No Pertinent History Musculoskeletal: No Pertinent History Female Surgical History: Tubal Ligation Other Surgical History: tubal Mar 2018 - Social History Smoking Status: Current every day smoker How long have you smoked: 10 years Exposure to second hand smoke: Yes Alcohol Use: None Drug Use: marijuana Patient Lives Alone: No Significant Family History: no pertinent family hx - Female History Hx Now: No (tubal) - Nursing Vital Signs Nursing Vital Signs: Initial Vital Signs Temperature 98.3 F 04/03/20 11:41 Pulse Rate 85 04/03/20 11:41 Respiratory Rate 17 04/03/20 11:41 Blood Pressure 116/83 04/03/20 11:41 O2 Sat by Pulse Oximetry 100 04/03/20 11:41 Pain Scale Pain Intensity 7 - Physical Exam General Appearance: no apparent distress, alert Eye Exam: PERRL/EOMI, eyes nml inspection Ears, Nose, Throat Exam: normal ENT inspection, pharynx normal, moist mucous membranes Neck Exam: normal inspection, non-tender, supple, full range of motion Respiratory Exam: normal breath sounds, lungs clear, No respiratory distress Cardiovascular Exam: regular rate/rhythm, normal heart sounds Gastrointestinal/Abdomen Exam: soft, No tenderness, No mass Back Exam: normal inspection, normal range of motion, No CVA tenderness, No vertebral tenderness Extremity Exam: normal inspection, normal range of motion, pelvis stable Neurologic Exam: alert, oriented x 3, cooperative, normal mood/affect, nml cerebellar function, sensation nml, No motor deficits Skin Exam: normal color, warm, dry SpO2: 98 - Course Nursing assessment & vital signs reviewed: Yes Ordered Tests: Active Orders 24 hr Category Date Time Status AMYLASE Stat Lab 04/03/20 13:10 Completed CBC W DIFF Stat Lab 04/03/20 13:10 Completed CMP Stat Lab 04/03/20 13:10 Completed CULTURE,URINE Stat Lab 04/03/20 13:10 Received LIPASE Stat Lab 04/03/20 13:10 Completed UA W/RFX UR CULTURE Stat Lab 04/03/20 13:10 Completed Medication Summary Generic Name Dose Route Start Last Admin Trade Name Gibson PRN Reason Stop Dose Admin Ceftriaxone Sodium/Dextrose 1 g in 50 mls @ 100 mls/hr 04/03/20 13:42 Rocephin 1 Gm-D5w 50 Ml Bag IV 04/03/20 14:11 STAT STA Discontinued Medications Generic Name Dose Route Start Last Admin Trade Name Gibson PRN Reason Stop Dose Admin Sodium Chloride 1,000 mls @ 999 mls/hr 04/03/20 12:44 04/03/20 13:13 Sodium Chloride 0.9% 1000 Ml IV 04/03/20 13:44 999 mls/hr .Q1H1M STA Administration Sodium Chloride Confirm 04/03/20 13:11 Sodium Chloride 0.9% 1000 Ml Administered 04/03/20 13:12 Dose 1,000 mls @ ud .ROUTE .STK-MED ONE Ondansetron HCl 4 mg 04/03/20 12:44 04/03/20 13:12 Zofran 4 Mg/2 Ml Vial IV 04/03/20 12:45 4 mg STAT ONE Administration Ondansetron HCl Confirm 04/03/20 13:11 Zofran 4 Mg/2 Ml Vial Administered 04/03/20 13:12 Dose 4 mg .ROUTE .STK-MED ONE Lab/Rad Data: Laboratory Result Diagrams 04/03/20 13:10 04/03/20 13:10 Laboratory Results 04/03/20 04/03/20 04/03/20 Range/Units 13:10 13:10 13:10 WBC 16.6 H (4.0-10.5) K/mm3 RBC 5.11 (4.1-5.4) M/mm3 Hgb 15.1 (12.0-16.0) gm/dl Hct 44.9 (35-47) % MCV 87.9 (78-100) fl MCH 29.5 (26-32) pg MCHC 33.6 (32-36) g/dl RDW 13.6 (11.5-14.0) % Plt Count 272 (150-450) K/mm3 MPV 9.8 (7.5-11.0) fl Gran % 67.4 H (36.0-66.0) % Eos # (Auto) 0.42 (0-0.5) Absolute Lymphs (auto) 3.72 (1.0-4.6) Absolute Monos (auto) 1.24 (0.0-1.3) Lymphocytes % 22.4 L (24.0-44.0) % Monocytes % 7.5 (0.0-12.0) % Eosinophils % 2.5 (0.00-5.0) % Basophils % 0.2 (0.0-0.4) % Absolute Granulocytes 11.18 H (1.4-6.9) Basophils # 0.03 (0-0.4) Sodium 139 (137-145) mmol/L Potassium 3.7 (3.5-5.1) mmol/L Chloride 107 (98-107) mmol/L Carbon Dioxide 24 (22-30) mmol/L Anion Gap 10.8 (5-15) MEQ/L BUN 8 (7-17) mg/dL Creatinine 0.59 (0.52-1.04) mg/dL Estimated GFR > 60.0 ML/MIN Glucose 88 (74-106) mg/dL Calcium 8.9 (8.4-10.2) mg/dL Total Bilirubin 0.30 (0.2-1.3) mg/dL AST 19 (14-36) U/L ALT 17 (0-35) U/L Alkaline Phosphatase 59 (38-126) U/L Serum Total Protein 7.3 (6.3-8.2) g/dL Albumin 4.0 (3.5-5.0) g/dL Amylase 79 (30-110) U/L Lipase 78 (23-300) U/L Urine Color YELLOW (YELLOW) Urine Appearance CLOUDY (CLEAR) Urine pH 5.0 (5-6) Ur Specific [place] 1.030 (1.005-1.025) Urine Protein >=500 (Negative) Urine Ketones NEGATIVE (NEGATIVE) Urine Blood NEGATIVE (0-5) Gil/ul Urine Nitrite NEGATIVE (NEGATIVE) Urine Bilirubin NEGATIVE (NEGATIVE) Urine Urobilinogen NEGATIVE (0-1) mg/dL Ur Leukocyte Esterase TRACE (NEGATIVE) Urine WBC (Auto) 16-25 (0-5) /HPF Urine RBC (Auto) 6-10 (0-2) /HPF U Hyaline Cast (Auto) 3-5 (0-2) /LPF U Epithel Cells (Auto) FEW (FEW) /HPF Urine Bacteria (Auto) FEW (NEGATIVE) /HPF Urine Mucus (Auto) MANY (NEGATIVE) /HPF Urine Culture Reflexed YES (NO) Urine Glucose NEGATIVE (NEGATIVE) mg/dL - Progress Progress: improved Counseled pt/family regarding: lab results, diagnosis, need for follow-up - Departure Departure Disposition: Home Clinical Impression: UTI (urinary tract infection) Qualifiers: Urinary tract infection type: acute pyelonephritis Qualified Code(s): N10 - Acute pyelonephritis Condition: Stable Critical Care Time: No Referrals: DOCTOR,NO FAMILY [Primary Care Provider] - RAFAEL SALES DO [ACTIVE STAFF] - Instructions: Urinary Tract Infection, Adult (DC), Kidney Infection Additional Instructions: Discharge/Care Plan ISMAEL CONTRERAS was seen on 04/03/20 in the Emergency Room. The patient was counseled regarding Diagnosis,Lab results, Imaging studies, need for follow up and when to return to the Emergency Room. Prescriptions given: Discharge Note I have spoken with the patient and/or caregivers. I have explained the patient's condition, diagnosis and treatment plan based on the information available to me at this time. I have answered the patient's and/or caregiver's questions and addressed any concerns. The patient and/or caregivers have as good understanding of the patient's diagnosis, condition and treatment plan as can be expected at this point. The vital signs have been stable. The patient's condition is stable and appropriate for discharge from the emergency department. The patient will pursue further outpatient evaluation with the primary care physician or other designated or consulting physician as outlined in the discharge instructions. The patient and/or caregivers are agreeable to this plan of care and follow-up instructions have been explained in detail. The patient and/or caregivers have received these instruction. The patient/and or caregivers are aware that any significant change in condition or worsening of symptoms should prompt an immediate return to this or the closest emergency department or call 911. ISMAEL CONTRERAS was seen on 04/03/20 n the Emergency Room. At that time you were treated for an emergent condition, during your visit Laboratory, Radiology and/or other procedures may have been ordered. It is very important that you follow-up with your Primary Care Physician NO FAMILY DOCTOR within the next 24- 48 hours to review your Emergency Room visit and the final results of testing that was ordered. Some test results such as Urine Cultures, Blood Cultures, and other cultures if ordered will not be finalized for 24-48 hours. If you do not have a Primary Care Provider please call the medical records department at [phone] ext [phone] to obtain a copy of your results or you may sign into our patient portal to obtain these results by visiting us @ [email or web address] and completing the following steps: 1. Click on the Patient Portal link 2. Click the Patient Self Enrollment Link to complete the enrollment form and entering your 3. Once the enrollment form is completed you will receive an email with a temporary ID and password at the email address you provided. 4. Next choose a user name and password. Your user name must be at least 4 characters long and your password must be at least 4 characters long. 5. Choose a security question from the list and provide your answer to the question. If you already have signed into the Health Portal you may access your Health Care Information 19/03 by the following steps: 1. Login to our website @ [email or web address] 2. Enter your original user name and password. FAQS The [facility] Health Portal is an online tool that contains your Lab Results, Radiology Reports, Visit History, Discharge Instructions and Health Summary Lab and Radiology Results will not be available for 72 hours on the portal. The Portal is a secure site, passwords are encryted and URLs are re-written so they cannot be copied and pasted. You and authorized family members are the only ones who can access your Portal. Also there is a timeout feature that protects your information if you leave the Portal page open. If you have technical difficulty please use the Contact Us link on the page this will allow you to submit any questions you have regarding the Portal or you may contact the Medical Record Department at [phone] ext [phone]. Prescriptions: Smz/Tmp Ds Tablet [Bactrim Ds Tablet] 1 udtab PO BID #20 tablet
[2020-04-03] MEDS ORDERED: Zofran 4 MG/2 ML VIAL ONE (13:11)
[2020-04-03] MEDS ORDERED: Sodium Chloride 0.9% 1000 ML 1,000 ML ONE (13:11)
[2020-04-03 13:23] LABS: Absolute Neutrophil Ct (ANC) 11.18 (1.4-6.9); BASOPHIL % 0.2 % (0.0-0.4); Basophil (Absolute #) 0.03 (0-0.4); Eosinophil % 2.5 % (0.00-5.0); Eosinophil (Absolute #) 0.42 (0-0.5); Hematocrit 44.9 % (35-47); Hemoglobin 15.1 gm/dl (12.0-16.0); Lymphocyte (Absolute #) 3.72 (1.0-4.6); Lymphocytes % 22.4 % (24.0-44.0); Mean Cell Volume 87.9 fl (78-100); Mean Corpuscular Hemoglobin 29.5 pg (26-32); Mean Corpuscular Hgb Concent. 33.6 g/dl (32-36); Mean Platelet Volume 9.8 fl (7.5-11.0); Monocyte (Absolute #) 1.24 (0.0-1.3); Monocytes % 7.5 % (0.0-12.0); Neutrophil % 67.4 % (36.0-66.0); Platelet Count 272 K/mm3 (150-450); Red Blood Count 5.11 M/mm3 (4.1-5.4); Red Cell Distribution Width 13.6 % (11.5-14.0); White Blood Count 16.6 K/mm3 (4.0-10.5)
[2020-04-03 13:31] LABS: Appearance CLOUDY (CLEAR); Bacteria FEW /HPF (NEGATIVE); Bilirubin NEGATIVE (NEGATIVE); Blood NEGATIVE Ery/ul (0-5); Epithelial Cells FEW /HPF (FEW); Glucose NEGATIVE (NEGATIVE); Ketones NEGATIVE (NEGATIVE); Leukocyte Esterase TRACE (NEGATIVE); Mucus MANY /HPF (NEGATIVE); Nitrite NEGATIVE (NEGATIVE); Protein,Urine Dip >=500 (Negative); Urobilinogen NEGATIVE mg/dL (0-1)
[2020-04-03 13:35] LABS: ALKALINE PHOSPHATASE 59 U/L (38-126); AMYLASE 79 U/L (30-110); ANION GAP 10.8 MEQ/L (5-15); BLOOD UREA NITROGEN 8 mg/dL (7-17); CHLORIDE 107 mmol/L (98-107); Calcium 8.9 mg/dL (8.4-10.2); Carbon Dioxide 24 mmol/L (22-30); Creatinine 1 0.59 mg/dL (0.52-1.04); Glucose 88 mg/dL (74-106); LIPASE 78 U/L (23-300); Potassium 3.7 mmol/L (3.5-5.1); SGOT/AST 19 U/L (14-36); SGPT/ALT 17 U/L (0-35); SODIUM 139 mmol/L (137-145); Total Protein 7.3 g/dL (6.3-8.2)
[2020-04-03] MEDS ORDERED: ROCEPHIN 1 Gm-D5w 50 ml Bag** 1 G/50 ML IVPB IV STA (13:42)
[2020-04-03 13:49] VITALS: O2SAT 98
[2020-04-03] MEDS ORDERED: ROCEPHIN 1 Gm-D5w 50 ml Bag** 1 G/50 ML IVPB IV ONE (13:52)
[2020-04-03 14:40] VITALS: BP 100/65; PULSE 62
== END 2020-04-03 14:36 | disposition home or self-care (01) ==
LOC: ED 11:25
DX: N10 Acute pyelonephritis (principal)
CPT/HCPCS: 36415; 80053; 81001; 82150; 83690; 85025; 87086; 96360; 96365; 96374; 99284; U0003; J0696; J2405

== ENCOUNTER 2021-05-26 13:57 | Emergency (ER) | payer OTHER ==
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
[2021-05-26 14:19] VITALS: BP 123/89; PULSE 119; O2SAT 99
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
== END 2021-05-26 15:30 | disposition left against medical advice (07) ==
LOC: ED 13:57
DX: S00.83XA Contusion of other part of head, initial encounter (principal); M25.532 Pain in left wrist; M25.531 Pain in right wrist; R51.9 Headache, unspecified; Y00.XXXA Assault by blunt object, initial encounter
CPT/HCPCS: 73110; 99284